=== PATIENT | female | born 1990 | race Caucasian/White ===

== ENCOUNTER → 2017-11-29 | Day surgery (SDC) | payer BC ==
--- NOTE | 2017-11-28 13:34 | PCM.PREANE ---
<Ann Funes - Last Filed: 11/28/17 13:26> Preanesthetic Assessment - Anesthesia/Transfusion/Family Hx Family History of Anesthesia Reaction: No Transfusion History: No Prior Transfusion(s) Intubation History: Unknown - Review of Systems Pulmonary: No Symptoms (Exercise induced asthma/current day smoker: 1/4 pack per day times less than 5 years) Gastrointestinal: Constipation Other: Reports: Thyroid Problems (hypothyroid), Anxiety - Physical Assessment NPO Status Date: 11/28/17 Height: 5 ft 4 in Mental Status: Alert & Oriented x3 - Lab Values: All lab values reviewed and noted and within acceptable ranges to proceed with scheduled procedure. - Allergies Allergies/Adverse Reactions: Allergies Allergy/AdvReac Type Severity Reaction Status Date / Time No Known Allergies Allergy Verified 11/28/17 15:09 - Anesthesia Plan Pre-Op Medication Ordered: None - Acknowledgements Anesthesia Type Planned: General Anesthesia Pt an Appropriate Candidate for the Planned Anesthesia: Yes Alternatives and Risks of Anesthesia Discussed w Pt/Guardian: Yes Pt/Guardian Understands and Agrees with Anesthesia Plan: Yes PreAnesthesia Questionnaire Respiratory History: Reports: Asthma Genitourinary History: Reports: Other (See Below) Other Genitourinary History: kidney infection [employer]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 (See Below) Other OB/BYN History: Ovarian cyst in childhood - Past Surgical History HEENT Surgical History: Reports: Tonsillectomy - SUBSTANCE USE Smoking Status *Q: Current Every Day Smoker Recreational Drug Use History: No - HOME MEDS Home Medications: Home Meds Ibuprofen 600 mg PO QID PRN #60 tablet 08/23/16 [Rx] Ethinyl Estradiol/Drospirenone [Yady 3 mg-0.02 mg Tablet] 1 tab PO DAILY [History] Levothyroxine 25 mcg PO DAILY 11/28/17 [History] - CURRENT (IN HOUSE) MEDS Current Meds: Current Medications Lactated Ringer's (Ringers, Lactated) 1,000 mls @ 125 mls/hr IV ASDIRECTED JOESPH Lidocaine/Sodium Bicarbonate (Buffered Lidocaine 1% In Ns 8.4%) 0.25 ml IDERM ONETIME PRN PRN Reason: Prior to IV Start Sodium Chloride (Saline Flush) 10 ml FLUSH ASDIRECTED PRN PRN Reason: Keep Vein Open Discontinued Medications Dexamethasone (Dexamethasone) Confirm Administered Dose 20 mg .ROUTE .STK-MED ONE Stop: 11/29/17 08:44 Fentanyl (Sublimaze) Confirm Administered Dose 250 mcg .ROUTE .STK-MED ONE Stop: 11/29/17 08:45 Lidocaine HCl (Xylocaine-Mpf 1%) Confirm Administered Dose 4 mls @ as directed .ROUTE .STK-MED ONE Stop: 11/29/17 08:44 Lactated Ringer's (Ringers, Lactated) Confirm Administered Dose 1,000 mls @ as directed .ROUTE .STK-MED ONE Stop: 11/29/17 08:44 Ketorolac Tromethamine (Toradol) Confirm Administered Dose 30 mg .ROUTE .STK- MED ONE Stop: 11/29/17 08:44 Midazolam HCl (Versed 1 Mg/Ml) Confirm Administered Dose 2 mg .ROUTE .STK-MED ONE Stop: 11/29/17 08:44 Ondansetron HCl (Zofran) Confirm Administered Dose 4 mg .ROUTE .STK-MED ONE Stop: 11/29/17 08:44 Propofol (Diprivan 20 Ml) Confirm Administered Dose 200 mg .ROUTE .STK-MED ONE Stop: 11/29/17 08:44 Rocuronium [place] (Zemuron) Confirm Administered Dose 50 mg .ROUTE .STK-MED ONE Stop: 11/29/17 08:44 <Jos Mayfield M - Last Filed: 11/29/17 09:28> Preanesthetic Assessment - Procedure Proposed Procedure: diag laparoscopy - Anesthesia/Transfusion/Family Hx Anesthesia History: Prior Anesthesia Without Reaction Family History of Anesthesia Reaction: No Transfusion History: No Prior Transfusion(s) Intubation History: Unknown - Review of Systems General: No Symptoms Pulmonary: No Symptoms Cardiovascular: No Symptoms Gastrointestinal: Abdominal Pain (from constipation), Constipation, Vomiting ( from constipation) Neurological: No Symptoms Other: Reports: Thyroid Problems, Anxiety (in highs school- not on meds) - Physical Assessment NPO Status Time: 22:30 (sip with thyroid med this am) Pulse: 74 O2 Sat by Pulse Oximetry: 98 Respiratory Rate: 16 Blood Pressure: 100/67 Temperature: 97.8 F Weight: 64.3 kg ASA Class: 2 Mental Status: Alert & Oriented x3 Airway Class: Mallampati = 1 Dentition: Reports: Normal Dentition Thyro-Mental Finger Breadths: 3 Mouth Opening Finger Breadths: 3 ROM/Head Extension: Full Lungs: Clear to Auscultation, Normal Respiratory Effort Cardiovascular: Regular Rate, Regular Rhythm - Blood Blood Available: No - Anesthesia Plan Pre-Op Medication Ordered: None - Acknowledgements Anesthesia Type Planned: General Anesthesia Pt an Appropriate Candidate for the Planned Anesthesia: Yes Alternatives and Risks of Anesthesia Discussed w Pt/Guardian: Yes Pt/Guardian Understands and Agrees with Anesthesia Plan: Yes PreAnesthesia Questionnaire Cardiovascular History: Reports: None Respiratory History: Reports: Asthma (exercised induced asthma- inhaler a year ago) Gastrointestinal History: Reports: Chronic Constipation [employer]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 (See Below) Other OB/BYN History: cyst now also Musculoskeletal History: Reports: None Psychiatric History: Reports: Anxiety (in high school) Oncologic (Cancer) History: Reports: None - Past Surgical History HEENT Surgical History: Reports: Tonsillectomy - History Comment History Comment: refused preg test- has period and using control - SUBSTANCE USE Smoking Status *Q: Current Every Day Smoker (couple cigs a day for 5 years) Tobacco Use Within Last Twelve Months: Cigarettes Second Hand Smoke Exposure: Yes Days Per Week of Alcohol Use: 1 (or less) Number of Drinks Per Day: 1 Total Drinks Per Week: 1 Recreational Drug Use History: No
[~2017-11-29] MED LIST: Albuterol 0.083% 2.5 MG/3 ML Neb Soln NEB PRN; Bupivacaine 0.5% 30 ML SDV ONE; Dexamethasone 4 MG/ML 5 ML MDV ONE; Glycopyrrolate 0.2 MG/ML SDV ONE; HYDROmorphone 0.5 MG/0.5 ML Syringe IVPUSH PRN; Ketorolac 30 MG/ML SDV ONE; Lactated Ringers 1,000 ML IV SCH; Lactated Ringers 1,000 ML ONE; Lidocaine 1% 4 ML ONE; Lidocaine 1%/Sod Bicarbonate in NS 8.4% 1 ML Syringe IDERM PRN; Meperidine PF 50 MG/ML Syringe IVPUSH PRN; Midazolam 1 MG/ML 2 ML SDV ONE; Neostigmine Methylsulfate 10 MG/10 ML MDV ONE; Ondansetron 4 MG/2 ML SDV IVPUSH PRN; Ondansetron 4 MG/2 ML SDV ONE; Phenylephrine 1 MG in Sodium Chloride 0.9% 10 ML IV SCH; Phenylephrine 1% 10 MG/ML SDV ONE; Propofol 200 MG/20 ML SDV ONE; Rocuronium 50 MG/5 ML Vial ONE; Sodium Chloride 0.9% 10 ML Syringe FLUSH PRN; diphenhydrAMINE 50 MG/ML SDV IVPUSH PRN; ePHEDrine 50 MG/ML SDV IVPUSH PRN; ePHEDrine 50 MG/ML SDV ONE; fentaNYL 100 MCG/2 ML SDV IVPUSH PRN; fentaNYL 250 MCG/5 ML SDV ONE
--- NOTE | 2017-11-29 11:18 | PCM.OPNOTE ---
- General Post-Op/Procedure Note Date of Surgery/Procedure: 11/29/17 Operative Procedure(s): Diagnostic laparoscopy with peritoneal biopsies and takedown of adhesions Findings: Overall normal-appearing uterus, bilateral tubes and bilateral ovaries, normal- appearing appendix, normal-appearing liver and gallbladder portions that were visible, normal-appearing intestines, posterior cul-de-sac peritoneum with several areas of possible cystic changes that were biopsied Pre Op Diagnosis: Female pelvic pain, irregular menses and chronic constipation Post-Op Diagnosis: Same Anesthesia Technique: General ET Tube Primary Surgeon: Neal Duarte Anesthesia Provider: Ann Funes Pathology: Left posterior cul-de-sac peritoneal biopsy, right posterior cul-de-sac peritoneal biopsy Fluid Replacement, Intraop: 1,100 Output, Urine Amount: 25 EBL in mLs: 5 Complications: None Condition: Good Free Text/Narrative:: Operating time: 30 minutes The patient was seen in the preoperative holding area and risks, benefits, indications, and alternatives of the procedure were reviewed with the patient and she desired to proceed with a diagnostic laparoscopy, biopsies as indicated , possible lysis of adhesions and possible fulguration of lesions. Consents were reviewed. The patient was taken back to the OR and given general anesthesia with an endotracheal tube which was placed without difficulty. She was placed in dorsal lithotomy position using Yellofin stirrups. She was prepped and draped in normal sterile fashion. A Cruz catheter was placed without difficulty. Attention was then turned to her umbilicus, which was injected with 0.5% Marcaine infraumbilically. A 5 mm incision was made with the scalpel. A Veress needle was then inserted through the incision and gas was turned on, with an opening pressure of 6 mmHg. Pneumoperitoneum was continued until 15 mmHg pressure. A 5 mm trocar was then inserted under direct visualization with a laparoscope. Attention was then turned to the suprapubic area and the skin was injected with local anesthetic. A skin incision was made using a scalpel. A 5 mm trocar was then inserted under direct visualization with laparoscope. Attention was then turned to the pelvis and visual inspection was performed and noted to have a normal-appearing uterus, normal bilateral fallopian tubes, and normal bilateral ovaries. The anterior cul-de-sac was normal in appearance. Attention was turned to the remainder of the abdomen and the appendix was identified and appeared normal. The remainder of the intestines appeared normal. On further inspection of the posterior cul-de-sac there was noted to be several small cystic areas on the bilateral sides of the peritoneal surface. Biopsies were taken on the right and left side of the posterior cul-de-sac peritoneum. These were sent for pathology. The biopsy sites were hemostatic. On inspection of the descending colon there was noted to be some adhesions to the left lateral sidewall and these were taken down using blunt traction with atraumatic graspers. The upper abdomen was inspected and she was noted have some adhesions of the omentum to the abdominal wall. These were not taken down. The visualized portions of the liver and gallbladder appeared normal. The case was completed at this time. The gas was then evacuated from the peritoneum and trocars removed. These were closed using 4-0 Monocryl suture and Dermabond. The Cruz catheter was discontinued at this time. The patient was awoken from general anesthesia and taken to the PACU for recovery in stable condition. She will be discharged to home once she is able to meet all postoperative milestones including tolerating small amount of food and liquids, ambulate without difficulty, have her pain controlled with oral medications and able to void without difficulty. She will follow-up in the clinic in 2-3 weeks or earlier as needed. Sponge, lap, needle, and instrument counts were correct x 2. Review of images IMG 001: Normal-appearing uterus, right fallopian tube and right ovary IMG 002: Normal-appearing appendix IMG 003: Normal-appearing left fallopian tube and small portion of ovary that was normal in appearance IMG 004: Normal-appearing liver edge and gallbladder
--- NOTE | 2017-11-29 11:21 | PCM.POSTAN ---
POST ANESTHESIA ASSESSMENT - MENTAL STATUS Mental Status: Alert - VITAL SIGNS Pulse Rate: 112 SaO2: 100 (2 LPM nasal cannula) Resp Rate: 11 Blood Pressure: 121/85 Temperature: 37.2 C - RESPIRATORY Respiratory Status: Respiratory Rate WNL, Airway Patent, O2 Saturation Stable - CARDIOVASCULAR CV Status: Pulse Rate WNL, Blood Pressure Stable - GASTROINTESTINAL GI Status: No Symptoms - POST OP HYDRATION Hydration Status: Adequate & Stable
--- NOTE | 2017-11-29 12:53 | PCM48HPAN ---
Post Anesthesia Note - EVALUATION WITHIN 48HRS OF ANESTHETIC Vital Signs in Normal Range: Yes Patient Participated in Evaluation: Yes Respiratory Function Stable: Yes Airway Patent: Yes Cardiovascular Function Stable: Yes Hydration Status Stable: Yes Pain Control Satisfactory: Yes Nausea and Vomiting Control Satisfactory: Yes Mental Status Recovered: Yes
[2017-11-29 13:08] VITALS: BP 101/67
== END | disposition home or self-care (01) ==
LOC: JD.SDS 08:55
PROVIDERS: ATTEND Obstetrics & Gynecology
DX: R10.2 Pelvic and perineal pain (principal); N92.6 Irregular menstruation, unspecified; K59.09 Other constipation; F41.9 Anxiety disorder, unspecified; J45.909 Unspecified asthma, uncomplicated; E03.9 Hypothyroidism, unspecified; F17.210 Nicotine dependence, cigarettes, uncomplicated
CPT/HCPCS: 49321; J1100; J1885; J2250; J2370; J2405; J2710; J3010; J3490; J7120; J2704

== ENCOUNTER 2020-02-05 06:22 | Emergency (ER) | payer BC ==
[2020-02-05] MEDS ORDERED: Ondansetron 4 MG/2 ML SDV IVPUSH ONE (06:56)
[2020-02-05] MEDS ORDERED: Sodium Chloride 0.9% 1,000 ML IV STA (06:56)
[2020-02-05] MEDS ORDERED: Sodium Chloride 0.9% 10 ML Syringe FLUSH PRN (06:56)
[2020-02-05] MEDS ORDERED: HYDROmorphone 1 MG/ML Syringe IVPUSH ONE ×2 (06:57→09:20)
[2020-02-05] MEDS ORDERED: Diatrizoate Meglumine/Diatrizoate Sodium 37% 120 ML Bottle PO ONE (07:04)
[2020-02-05] MEDS ORDERED: Iopamidol 612 MG/ML 100 ML Bottle IVPUSH ONE (07:04)
--- NOTE | 2020-02-05 08:51 | CT ---
CT abdomen and pelvis Technique: Multiple axial sections were obtained from above the dome of the diaphragm inferiorly through the pubic symphysis. Intravenous and oral contrast was utilized. Comparison: Prior abdominal x-ray of 02/20/19, no prior CT abdominal or pelvic exam is available. Findings: Appendix is seen and is normal in size. Slightly prominent lymph nodes are noted within the right lower abdomen. Visualized lung bases show nothing acute. Liver contains no focal abnormality. Spleen appears within normal limits. Adrenal glands show no nodule. Pancreas is within normal limits. Kidneys show symmetric contrast enhancement without hydronephrosis or mass. Aorta shows no aneurysm. Gallbladder contains no calcified gallstones. No retroperitoneal adenopathy is seen. No mesenteric inflammatory change is seen. No pelvic mass or adenopathy is seen. Mild increased stool is seen throughout colon. Bone window settings were reviewed. No acute osseous finding is seen. Impression: 1. Normal-appearing appendix is seen. 2. Slightly prominent lymph nodes within the right lower abdomen and difficult to exclude so-called mesenteric adenitis. 3. Mild increased stool is noted within the colon. Diagnostic code #3 This report was dictated in MDT
--- NOTE | 2020-02-05 09:05 | EDM.PDOC ---
ED HPI GENERAL MEDICAL PROBLEM - General Chief Complaint: Abdominal Pain Stated Complaint: RIGHT ABDOMINAL PAIN Time Seen by Provider: 02/05/20 06:50 Source of Information: Reports: Patient History Limitations: Reports: No Limitations - History of Present Illness INITIAL COMMENTS - FREE TEXT/NARRATIVE: The patient presents with RLQ abdominal pain and nausea. This started yeste rday. She says the pain is worse since yesterday. She has nausea but no vomiting. She does have a history of IBS, PCOS and endometriosis. She says this feels different then all of them. She has no vomiting. She has no fever or chills. She does have some dysuria but no hematuria. She has no fever but she does have chills. She has no cough, congestion or runny nose. She has no chest pain or shortness of breath. She still has her appendix and gallbladder. Her last normal menstrual period was 2 weeks ago. Onset: Gradual Duration: Day(s): Location: Reports: Abdomen Quality: Reports: Sharp Severity: Moderate Improves with: Reports: Immobilization Worsens with: Reports: Movement Context: Denies: Trauma Associated Symptoms: Reports: No Other Symptoms Right Lower Abdominal Pain Score (Numeric/FACES): 10 - Related Data Allergies Allergy/AdvReac Type Severity Reaction Status Date / Time CHG Wipes Allergy "Burning Uncoded 02/05/20 06:36 Sensation", Redness, Rash Home Meds: Home Meds Ethinyl Estradiol/Drospirenone [Yady 3 mg-0.02 mg Tablet] 1 tab PO DAILY 11/28/17 [History] Levothyroxine 25 mcg PO DAILY 11/28/17 [History] Sertraline [Zoloft] 25 mg PO DAILY 06/26/18 [History] Omeprazole Magnesium [Prilosec Otc] 20 mg PO DAILY #10 tablet. 02/21/19 [Rx] Hydrocodone/Acetaminophen [Hydrocodone-Acetamin 5-325 mg] 1 - 2 each PO Q6HR PRN #20 tablet 02/05/20 [Rx] Ondansetron [Zofran ODT] 4 mg PO Q6H PRN #20 tab.dis 02/05/20 [Rx] Past Medical History HEENT History: Reports: Other (See Below) Other HEENT History: Deviated septum Cardiovascular History: Reports: None Respiratory History: Reports: Asthma Gastrointestinal History: Reports: Chronic Constipation Genitourinary History: Reports: UTI, Recurrent, Other (See Below) Other Genitourinary History: kidney infection, pylenonephritis CRIMINAL INVESTIGATIVE AGENT History: Reports: Endometriosis, Polycystic Ovaries, Other (See Below) Other CRIMINAL INVESTIGATIVE AGENT History: cyst now also Musculoskeletal History: Reports: Fracture, Fibromyalgia Other Musculoskeletal History: Nasal fracture Neurological History: Reports: None Psychiatric History: Reports: Anxiety Endocrine/Metabolic History: Reports: Hypothyroidism Hematologic History: Reports: Anemia Immunologic History: Reports: None Oncologic (Cancer) History: Reports: None Dermatologic History: Reports: None - Infectious Disease History Infectious Disease History: Reports: Chicken Pox, Shingles - Past Surgical History Head Surgeries/Procedures: Reports: None HEENT Surgical History: Reports: Tonsillectomy GI Surgical History: Reports: Other (See Below) Other GI Surgeries/Procedures: Exploratory laproscopy Female Surgical History: Reports: None Endocrine Surgical History: Reports: None Neurological Surgical History: Reports: None Dermatological Surgical History: Reports: None - History Comment History Comment: refused preg test- has period and using control Social & Family History - Family History Family Medical History: Noncontributory Cardiac: Reports: [place] - Tobacco Use Smoking Status *Q: Former Smoker Used Tobacco, but Quit: Yes Month/Year Tobacco Last Used: August 2019 - Caffeine Use Caffeine Use: Reports: Coffee, Soda - Recreational Drug Use Drug Use in Last 12 Months: No ED ROS GENERAL - Review of Systems Review Of Systems: See Below Constitutional: Reports: Chills. Denies: Fever HEENT: Reports: No Symptoms Respiratory: Reports: No Symptoms Cardiovascular: Reports: No Symptoms Endocrine: Reports: No Symptoms GI/Abdominal: Reports: Abdominal Pain, Nausea. Denies: Diarrhea, Vomiting : Reports: Dysuria Musculoskeletal: Reports: No Symptoms ED EXAM, GI/ABD - Physical Exam Exam: See Below Exam Limited By: No Limitations General Appearance: Alert, No Apparent Distress Ears: Normal External Exam Nose: Normal Inspection Head: Atraumatic, Normocephalic Neck: Normal Inspection Respiratory/Chest: No Respiratory Distress, Lungs Clear, Normal Breath Sounds Cardiovascular: Regular Rate, Rhythm, No Edema, No Murmur GI/Abdominal Exam: Soft, No Organomegaly, No Mass, Tender (Moderate tenderness to the RLQ) Back Exam: Normal Inspection Extremities: Normal Inspection Course - Vital Signs Last Recorded V/S: Last Vital Signs Temp 97.8 F 02/05/20 06:33 Pulse 105 H 02/05/20 06:33 Resp 16 02/05/20 06:33 BP 129/79 02/05/20 06:33 Pulse Ox 98 02/05/20 06:33 - Orders/Labs/Meds Orders: Active Orders 24 hr Category Date Time Status Peripheral IV Care [RC] . DIRECTED Care 02/05/20 06:56 Active HYDROmorphone [Dilaudid] Med 02/05/20 09:20 Once 1 mg IVPUSH ONETIME ONE Sodium Chloride 0.9% [Saline Flush] Med 02/05/20 06:56 Active 10 ml FLUSH ASDIRECTED PRN ED Antiemetic Medication Reflex [OM.PC] Stat Oth 02/05/20 06:56 Ordered Peripheral IV Insertion Adult [OM.PC] Stat Ot 02/05/20 06:56 Ordered Medication Orders Sodium Chloride (Saline Flush) 10 ml FLUSH ASDIRECTED PRN PRN Reason: Keep Vein Open Last Admin: 02/05/20 08:37 Dose: 10 ml Documented by: AGATHA Labs: Laboratory Tests 02/05/20 02/05/20 02/05/20 Range/Units 06:30 06:30 06:30 WBC 12.80 H (3.98-10.04) K/mm3 RBC 5.11 (3.98-5.22) M/mm3 Hgb 14.6 D (11.2-15.7) gm/dl Hct 43.8 (34.1-44.9) % MCV 85.7 (79.4-94.8) fl MCH 28.6 (25.6-32.2) pg MCHC 33.3 (32.2-35.5) g/dl RDW Std Deviation 39.4 (36.4-46.3) fL Plt Count 225 (182-369) K/mm3 MPV 10.9 (9.4-12.3) fl Neut % (Auto) 66.9 (34.0-71.1) % Lymph % (Auto) 23.0 (19.3-51.7) % [place] % (Auto) 7.7 (4.7-12.5) % Eos % (Auto) 2.0 (0.7-5.8) Baso % (Auto) 0.2 (0.1-1.2) % Neut # (Auto) 8.55 H (1.56-6.13) K/mm3 Lymph # (Auto) 2.95 (1.18-3.74) K/mm3 [place] # (Auto) 0.99 H (0.24-0.36) K/mm3 Eos # (Auto) 0.26 (0.04-0.36) K/mm3 Baso # (Auto) 0.03 (0.01-0.08) K/mm3 Manual Slide Review Abnormal smear Sodium 138 (136-145) mEq/L Potassium 3.3 L (3.5-5.1) mEq/L Chloride 102 (98-107) mEq/L Carbon Dioxide 24 (21-32) mEq/L Anion Gap 15.3 H (5-15) BUN 7 (7-18) mg/dL Creatinine 0.9 (0.55-1.02) mg/dL Est Cr Clr Drug Dosing 83.74 mL/min Estimated GFR (MDRD) > 60 (>60) mL/min BUN/Creatinine Ratio 7.8 L (14-18) Glucose 96 (74-106) mg/dL Calcium 8.9 (8.5-10.1) mg/dL Total Bilirubin 0.6 (0.2-1.0) mg/dL AST 14 L (15-37) U/L ALT 23 (14-59) U/L Alkaline Phosphatase 77 (46-116) U/L Total Protein 7.4 (6.4-8.2) g/dl Albumin 3.9 (3.4-5.0) g/dl Globulin 3.5 gm/dL Albumin/Globulin Ratio 1.1 (1-2) Lipase (73-393) U/L HCG, Qual Negative (NEGATIVE) Urine Color (Yellow) Urine Appearance (Clear) Urine pH (5.0-8.0) Ur Specific [place] (1.005-1.030) Urine Protein (Negative) Urine Glucose (UA) (Negative) Urine Ketones (Negative) Urine Occult Blood (Negative) Urine Nitrite (Negative) Urine Bilirubin (Negative) Urine Urobilinogen (0.2-1.0) Ur Leukocyte Esterase (Negative) Urine RBC (0-5) /hpf Urine WBC (0-5) /hpf Ur Squamous Epith Cells (0-5) /hpf Urine Bacteria (FEW) /hpf Urine Mucus (FEW) /hpf 02/05/20 02/05/20 Range/Units 06:30 07:10 WBC (3.98-10.04) K/mm3 RBC (3.98-5.22) M/mm3 Hgb (11.2-15.7) gm/dl Hct (34.1-44.9) % MCV (79.4-94.8) fl MCH (25.6-32.2) pg MCHC (32.2-35.5) g/dl RDW Std Deviation (36.4-46.3) fL Plt Count (182-369) K/mm3 MPV (9.4-12.3) fl Neut % (Auto) (34.0-71.1) % Lymph % (Auto) (19.3-51.7) % [place] % (Auto) (4.7-12.5) % Eos % (Auto) (0.7-5.8) Baso % (Auto) (0.1-1.2) % Neut # (Auto) (1.56-6.13) K/mm3 Lymph # (Auto) (1.18-3.74) K/mm3 [place] # (Auto) (0.24-0.36) K/mm3 Eos # (Auto) (0.04-0.36) K/mm3 Baso # (Auto) (0.01-0.08) K/mm3 Manual Slide Review Sodium (136-145) mEq/L Potassium (3.5-5.1) mEq/L Chloride (98-107) mEq/L Carbon Dioxide (21-32) mEq/L Anion Gap (5-15) BUN (7-18) mg/dL Creatinine (0.55-1.02) mg/dL Est Cr Clr Drug Dosing mL/min Estimated GFR (MDRD) (>60) mL/min BUN/Creatinine Ratio (14-18) Glucose (74-106) mg/dL Calcium (8.5-10.1) mg/dL Total Bilirubin (0.2-1.0) mg/dL AST (15-37) U/L ALT (14-59) U/L Alkaline Phosphatase (46-116) U/L Total Protein (6.4-8.2) g/dl Albumin (3.4-5.0) g/dl Globulin gm/dL Albumin/Globulin Ratio (1-2) Lipase 61 L (73-393) U/L HCG, Qual (NEGATIVE) Urine Color Yellow (Yellow) Urine Appearance Clear (Clear) Urine pH 6.0 (5.0-8.0) Ur Specific [place] 1.020 (1.005-1.030) Urine Protein Negative (Negative) Urine Glucose (UA) Negative (Negative) Urine Ketones 2+ H (Negative) Urine Occult Blood Negative (Negative) Urine Nitrite Negative (Negative) Urine Bilirubin Negative (Negative) Urine Urobilinogen 0.2 (0.2-1.0) Ur Leukocyte Esterase Negative (Negative) Urine RBC 0-5 (0-5) /hpf Urine WBC 0-5 (0-5) /hpf Ur Squamous Epith Cells 0-5 (0-5) /hpf Urine Bacteria Rare (FEW) /hpf Urine Mucus Few (FEW) /hpf Meds: Medications Generic Name Dose Route Start Last Admin Trade Name Mary PRN Reason Stop Dose Admin Sodium Chloride 10 ml 02/05/20 06:56 02/05/20 08:37 Saline Flush FLUSH 10 ml ASDIRECTED PRN Administration Keep Vein Open Discontinued Medications Generic Name Dose Route Start Last Admin Trade Name Mary PRN Reason Stop Dose Admin Diatrizoate Meglum/Diatrizoate Sod 90 ml 02/05/20 07:04 02/05/20 08:37 Gastrografin 37% PO 02/05/20 07:05 90 ml ONETIME ONE Administration Hydromorphone HCl 1 mg 02/05/20 06:57 02/05/20 07:17 Dilaudid IVPUSH 02/05/20 06:58 1 mg ONETIME ONE Administration Sodium Chloride 1,000 mls @ 1,000 mls/hr 02/05/20 06:56 02/05/20 07:19 Normal Saline IV 02/05/20 07:55 1,000 mls/hr .BOLUS STA Administration Iopamidol 100 ml 02/05/20 07:04 02/05/20 08:37 Isovue-300 (61%) IVPUSH 02/05/20 07:05 100 ml ONETIME ONE Administration Ondansetron HCl 4 mg 02/05/20 06:56 06/23/20 07:15 Zofran IVPUSH 02/05/20 06:57 4 mg ONETIME ONE Administration - Re-Assessments/Exams Free Text/Narrative Re-Assessment/Exam: 02/05/20 09:03 I ordered an IV NS 1L bolus, zofran 4mg IV, dilaudid 1mg IV, labs, UA and a CT of her abdomen and pelvis with IV and oral contrast. Her WBC was elevated at 12.8. Her K was a little low at 3.3. Her anion gap was slightly elevated at 15.3. Her lipase was low at 61. Her HCG is negative. Her UA shows no UTI. Her CT shows normal appearing appendix is seen. Slightly prominent lymph nodes within the right lower abdomen and difficult to exclude so-called mesenteric adenitis. Mild increased stool is noted within the colon. 02/05/20 09:21 Her pain is coming back. I will give her another dose of dilaudid 1mg IV. I will discharge her home on something for pain and nausea and have her follow up with her doctor or return if she is worse. Departure - Departure Time of Disposition: 09:25 Disposition: Home, Self-Care 01 Condition: Good Clinical Impression: Mesenteric adenitis - Discharge Information *PRESCRIPTION DRUG MONITORING PROGRAM REVIEWED*: Not Applicable *COPY OF PRESCRIPTION DRUG MONITORING REPORT IN PATIENT EMERITA: Not Applicable Prescriptions: Hydrocodone/Acetaminophen [Hydrocodone-Acetamin 5-325 mg] 1 - 2 each PO Q6HR PRN #20 tablet PRN Reason: Pain Ondansetron [Zofran ODT] 4 mg PO Q6H PRN #20 tab.dis PRN Reason: Nausea\\vomiting Referrals: PCP,None [Primary Care Provider] - Aliya Mathew MD [Physician] - Ebonie Leblanc NP [Nurse Practitioner] - 3 Days Forms: ED Department Discharge Additional Instructions: Drink plenty of fluids. Take motrin or tylenol for pain. If that does not help, try the hydrocodone. Take the zofran every 6 hours as needed for nausea and vomiting. Please return if you are worse. Follow up with your provider in 3 days or with Ebonie Leblanc in our clinic. Sepsis Event Note (ED) - Evaluation Sepsis Screening Result: No Definite Risk - Focused Exam Vital Signs: Vital Signs Temp Pulse Resp BP Pulse Ox 02/05/20 06:33 97.8 F 105 H 16 129/79 98 - My Orders Last 24 Hours: My Active Orders 02/05/20 06:56 Peripheral IV Care [RC] . DIRECTED Sodium Chloride 0.9% [Saline Flush] 10 ml FLUSH ASDIRECTED PRN ED Antiemetic Medication Reflex [OM.PC] Stat Peripheral IV Insertion Adult [OM.PC] Stat 02/05/20 09:20 HYDROmorphone [Dilaudid] 1 mg IVPUSH ONETIME ONE - Assessment/Plan Last 24 Hours: My Active Orders 02/05/20 06:56 Peripheral IV Care [RC] . DIRECTED Sodium Chloride 0.9% [Saline Flush] 10 ml FLUSH ASDIRECTED PRN ED Antiemetic Medication Reflex [OM.PC] Stat Peripheral IV Insertion Adult [OM.PC] Stat 02/05/20 09:20 HYDROmorphone [Dilaudid] 1 mg IVPUSH ONETIME ONE
[2020-02-05 09:53] VITALS: BP 97/72; PULSE 79
== END 2020-02-05 10:00 | disposition home or self-care (01) ==
LOC: JD.ED 06:22
DX: I88.0 Nonspecific mesenteric lymphadenitis (principal); J45.909 Unspecified asthma, uncomplicated; E03.9 Hypothyroidism, unspecified; F41.9 Anxiety disorder, unspecified; Z87.891 Personal history of nicotine dependence; Z91.048 Other nonmedicinal substance allergy status; Z79.899 Other long term (current) drug therapy
CPT/HCPCS: 36415; 74177; 80053; 81001; 83690; 84703; 85025; 96374; 96375; 96376; 99284; J1170; J2405; J7030; Q9963; Q9967

== ENCOUNTER 2020-03-02 10:12 | Emergency (ER) | payer BC ==
[2020-03-02 10:27] VITALS: BP 122/84; PULSE 89
--- NOTE | 2020-03-02 10:34 | EDM.PDOC ---
ED HPI GENERAL MEDICAL PROBLEM - General Chief Complaint: Chest Pain Stated Complaint: CHEST PAIN Time Seen by Provider: 03/02/20 10:30 Source of Information: Reports: Patient History Limitations: Reports: No Limitations - History of Present Illness INITIAL COMMENTS - FREE TEXT/NARRATIVE: 29-year-old female presents to the ED complaining of central retrosternal chest pressure discomfort not radiating through to her back. She reports that this awoke her from sleep about 0900 hrs. this morning. She really has not tried to burp or belch to relieve the discomfort. She indicates that the pain is coming and going in a spastic or colic-like fashion. It is better now than it was when she left home. There is been no nausea or vomiting. She states her last meal was about 3 hours before going to bed last night. She denies any recent alcohol use. She used to take Prilosec for her stomach because she has IBS and primarily a constipation component. Has not been using it as of late. She rarely gets heartburn or at least not aware of this. Force has no underlying heart condition. She questions whether the pain is better with lying down versus sitting up. She thought perhaps it was more spastic when she was up and walking and standing. Feeling much better now as compared to when she elected to come to the hospital. No previous similar complaints. Denies any po ssibility of . She has been on oral contraceptive pill for greater than 6 months. Onset: Today, Sudden Onset Date: 03/02/20 Onset Time: 09:00 Duration: Minutes: Location: Reports: Chest (Chest pressure discomfort.) Quality: Reports: Ache, Pressure, Sharp, Stabbing (Intermittent colicky type pain as well.), Other Severity: Moderate Improves with: Reports: None Worsens with: Reports: None (Took some Tums with no relief.) Context: Denies: Activity, Exercise, Lifting, Sick Contact, Trauma, Other Associated Symptoms: Reports: No Other Symptoms, Loss of Appetite. Denies: Confusion, Chest Pain, Cough, cough w sputum, Diaphoresis, Fever/Chills, Headaches, Malaise, Nausea/Vomiting, Rash, Seizure, Shortness of Breath, Syncope, Weakness Treatments PIZZA HUT ASSISTANT: Reports: Other (see below) (Tums with no relief) - Related Data Allergies Allergy/AdvReac Type Severity Reaction Status Date / Time CHG Wipes Allergy "Burning Uncoded 03/02/20 10:27 Sensation", Redness, Rash Home Meds: Home Meds Ethinyl Estradiol/Drospirenone [Yady 3 mg-0.02 mg Tablet] 1 tab PO DAILY 11/28/17 [History] Dicyclomine [Bentyl] 20 mg PO Q6H PRN #8 tablet 03/02/20 [Rx] Past Medical History HEENT History: Reports: Other (See Below) Other HEENT History: Deviated septum Cardiovascular History: Reports: None Respiratory History: Reports: Asthma Gastrointestinal History: Reports: Chronic Constipation Genitourinary History: Reports: UTI, Recurrent, Other (See Below) Other Genitourinary History: kidney infection, pylenonephritis GRAPHIC ENGINEER History: Reports: Endometriosis, Polycystic Ovaries, Other (See Below) Other GRAPHIC ENGINEER History: cyst now also Musculoskeletal History: Reports: Fracture, Fibromyalgia Other Musculoskeletal History: Nasal fracture Neurological History: Reports: None Psychiatric History: Reports: Anxiety Endocrine/Metabolic History: Reports: Hypothyroidism Hematologic History: Reports: Anemia Immunologic History: Reports: None Oncologic (Cancer) History: Reports: None Dermatologic History: Reports: None - Infectious Disease History Infectious Disease History: Reports: Chicken Pox, Shingles - Past Surgical History Head Surgeries/Procedures: Reports: None HEENT Surgical History: Reports: Tonsillectomy GI Surgical History: Reports: Other (See Below) Other GI Surgeries/Procedures: Exploratory laproscopy Female Surgical History: Reports: None Endocrine Surgical History: Reports: None Neurological Surgical History: Reports: None Dermatological Surgical History: Reports: None - History Comment History Comment: refused preg test- has period and using control Social & Family History - Family History Family Medical History: Noncontributory Cardiac: Reports: [place] - Tobacco Use Smoking Status *Q: Never Smoker - Caffeine Use Caffeine Use: Reports: Coffee, Soda - Recreational Drug Use Recreational Drug Use: No - Living Situation & Occupation Living situation: Reports: Single Occupation: Employed ED ROS GENERAL - Review of Systems Review Of Systems: See Below Constitutional: Denies: Fever, Chills, Malaise, Weakness, Fatigue, Decreased Appetite, Weight Loss HEENT: Reports: No Symptoms Respiratory: Reports: No Symptoms. Denies: Shortness of Breath, Wheezing, Pleuritic Chest Pain Cardiovascular: Reports: Chest Pain. Denies: Blood Pressure Problem, Claudication, Dyspnea on Exertion, Edema, Lightheadedness, Orthopnea Endocrine: Reports: No Symptoms GI/Abdominal: Reports: Abdominal Pain, Constipation (Has IBS with primary constipation.). Denies: Nausea, Vomiting : Reports: No Symptoms Musculoskeletal: Reports: No Symptoms Skin: Reports: No Symptoms Neurological: Reports: No Symptoms Psychiatric: Reports: No Symptoms Hematologic/Lymphatic: Reports: No Symptoms Immunologic: Reports: No Symptoms ED EXAM, GENERAL - Physical Exam Exam: See Below Exam Limited By: No Limitations General Appearance: Alert, WD/WN, No Apparent Distress, Other (Temperature is 36.6 with a heart rate of 89 and sinus. Respiratory to 16 BP 122/84 O2 sats 98% on room air.) Eye Exam: Bilateral Eye: Normal Inspection, PERRL Neck: Normal Inspection, Supple, Non-Tender, Full Range of Motion. No: Carotid Bruit, Lymphadenopathy (L), Lymphadenopathy (R) Respiratory/Chest: No Respiratory Distress, Lungs Clear, Normal Breath Sounds, No Accessory Muscle Use, Chest Non-Tender Cardiovascular: Normal Peripheral Pulses, Regular Rate, Rhythm, No Edema, No Gallop, No Murmur, No Rub Peripheral Pulses: 3+: Carotid (L), Carotid (R), Posterior Tibial (L), Posterior Tibial (R), Dorsalis Pedis (L), Dorsalis Pedis (R) GI/Abdominal: Normal Bowel Sounds, Soft, No Organomegaly, No Abnormal Bruit, No Mass, Pelvis Stable, Tender (Some tenderness on deep palpation in the in the epigastrium.). No: Guarding, Rigid, Rebound Back Exam: Normal Inspection, Full Range of Motion. No: CVA Tenderness (L), CVA Tenderness (R) Extremities: Normal Inspection, Normal Range of Motion, Non-Tender, No Pedal Edema Neurological: Alert, Oriented, CN II-XII Intact, Normal Cognition, Normal Gait Psychiatric: Normal Affect, Normal Mood Skin Exam: Warm, Dry, Intact, Normal Color, No Rash EKG INTERPRETATION EKG Date: 03/02/20 Time: 10:58 Rhythm: NSR Rate (Beats/Min): 77 [place]: RAD-Right [place] Deviation (33 degrees.) P-Wave: Present QRS: Normal ST-T: Other (Wave inversion V1 to V3 with flattening in aVL. Nonspecific findings.) QT: Normal EKG Interpretation Comments: Borderline ECG Course - Vital Signs Last Recorded V/S: Last Vital Signs Temp 36.6 C 03/02/20 10:25 Pulse 89 03/02/20 10:25 Resp 16 03/02/20 10:25 BP 122/84 03/02/20 10:25 Pulse Ox 98 03/02/20 10:25 - Orders/Labs/Meds Orders: Active Orders 24 hr Category Date Time Status EKG Documentation Completion [RC] STAT Care 03/02/20 10:50 Active Chest 1V Frontal [CR] Stat Exams 03/02/20 10:50 Taken Meds: Medications Discontinued Medications Generic Name Dose Route Start Last Admin Trade Name Mary PRN Reason Stop Dose Admin Al Hydroxide/Mg Hydroxide 30 0 ml 03/02/20 11:25 03/02/20 11:43 ml/ Lidocaine HCl 15 ml PO 03/02/20 11:26 45 ml ONETIME ONE Administration Dicyclomine HCl 20 mg 03/02/20 11:26 03/02/20 11:43 Bentyl PO 03/02/20 11:27 20 mg ONETIME ONE Administration Hyoscyamine 0.125 mg 03/02/20 10:50 03/02/20 10:54 Hyomax-Sl SL 03/02/20 10:51 0.125 mg ONETIME ONE Administration - Radiology Interpretation Free Text/Narrative:: 29-year-old female presents to the ED after awakening from sleep about 0900 hrs. this morning with central chest pressure discomfort. No relief with [place] by mouth. She does not report any significant burping or belching to relieve the discomfort. She did eat about 3 to 4 hours before going to bed last night. She has a history of mild heartburn and reflux but is been well controlled as of late. Pain does seem to radiate up and down the esophagus distribution and does have a colicky component to it. She reports it is much better now than it was when she left home this morning. Clinically she has no signs of cardiac disease. Ice is strongly suspected GI origin to her current chest complaints. Plan Levsin 0.125 mg sublingual. ECG and a one-view portable chest x-ray to be done. - Re-Assessments/Exams Free Text/Narrative Re-Assessment/Exam: 03/02/20 11:26 ECG and portable chest x-ray are within normal limits. Patient is still experiencing quite a bit of spastic central chest pain which I suspect is esophageal spasm. To help all that much. We will therefore give her a GI cocktail and Bentyl 20 mg p.o. Departure - Departure Time of Disposition: 12:04 Disposition: Home, Self-Care 01 Reason for Transfer *Q: Other Condition: Fair Clinical Impression: Non-cardiac chest pain, Esophageal spasm Prescriptions: Dicyclomine [Bentyl] 20 mg PO Q6H PRN #8 tablet PRN Reason: Abdominal cramps/diarrhea Instructions: Esophageal Spasm Referrals: PCP,None [Primary Care Provider] - Forms: ED Department Discharge Additional Instructions: Evaluation in the emergency room today in regards to central chest pressure discomfort with a colicky component i.e. sharp stabbing intermittent pain strongly suggestive of esophageal spasm. ECG and chest x-ray were within normal limits. You were treated with Levsin 0.125 mg under the tongue to relieve spasm as well as Bentyl 20 mg orally which will take 45 minutes or so to work. GI cocktail also helped a little bit relieve the discomfort in your chest. Strongly suggest avoiding acidic foods today such as mustard, ketchup, pickle juice etc. Cliff diet for the next day or so. No alcohol use. Just resuming Prilosec 20 mg twice daily for the next 4 days and then once daily at bedtime for another 10 days to allow the food pipe to heal. If symptoms persist then follow-up with primary care physician to see if upper GI endoscopy is required. I did write a prescription for Bentyl tablets to be taken 20 mg every 6 hours if needed for similar type pain. Sepsis Event Note (ED) - Evaluation Sepsis Screening Result: No Definite Risk - Focused Exam Vital Signs: Vital Signs Temp Pulse Resp BP Pulse Ox 03/02/20 10:25 36.6 C 89 16 122/84 98 - My Orders Last 24 Hours: My Active Orders 03/02/20 10:50 EKG Documentation Completion [RC] STAT Chest 1V Frontal [CR] Stat - Assessment/Plan Last 24 Hours: My Active Orders 03/02/20 10:50 EKG Documentation Completion [RC] STAT Chest 1V Frontal [CR] Stat
[2020-03-02] MEDS ORDERED: Hyoscyamine 0.125 MG Tab.SL SL ONE (10:50)
[2020-03-02] MEDS ORDERED: Alum Hydrox/Mag Hydrox/Simeth 30 ML, Lidocaine 2% 15 ML PO ONE ×2 (11:25)
[2020-03-02] MEDS ORDERED: Dicyclomine 10 MG Cap PO ONE (11:26)
--- NOTE | 2020-03-03 05:23 | CR ---
Chest: Portable view of the chest was obtained. Comparison: Prior chest x-ray of 10/14/13. Heart size and mediastinum are normal. Lungs are clear with no acute parenchymal change. Bony structures are grossly intact. Impression: 1. Nothing acute is seen on portable chest x-ray. Diagnostic code #1 This report was dictated in MDT
== END 2020-03-02 12:10 | disposition home or self-care (01) ==
LOC: JD.ED 10:12
DX: R07.89 Other chest pain (principal); K22.4 Dyskinesia of esophagus; Z91.048 Other nonmedicinal substance allergy status
CPT/HCPCS: 71045; 93005; 99285; A9270; 93010; 99284

== ENCOUNTER 2021-04-15 15:59 | Emergency (ER) | payer BC ==
[2021-04-15 16:33] VITALS: BP 116/81; PULSE 89
[2021-04-15] MEDS ORDERED: Sodium Chloride 0.9% 10 ML Syringe FLUSH PRN (21:35)
--- NOTE | 2021-04-15 22:02 | EDM.PDOC ---
ED HPI GENERAL MEDICAL PROBLEM - General Chief Complaint: Genitourinary Problem Stated Complaint: NAUSEA/BACK/URINATION PAIN Time Seen by Provider: 04/15/21 21:34 Source of Information: Reports: Patient, RN Notes Reviewed History Limitations: Reports: No Limitations - History of Present Illness INITIAL COMMENTS - FREE TEXT/NARRATIVE: Patient is a 31-year-old female presenting to the emergency department with complaints of dysuria, right-sided flank pain, and nausea. Patient reports that she was diagnosed on 31 March with urinary tract infection and treated with Macrobid. She has been taking Azo consistently since that time. She feels that her symptoms did improve, however have been progressively worsening again. Complains of dysuria, frequency, and intermittent right-sided flank pain. She is had no documented fevers but states she has felt nauseous. Denies any vomiting. She is able to keep fluids down. Denies any history of kidney stones, but states that she has had numerous urinary tract infections with occasional pyelonephritis. She has not seen urology in the past. back Pain Score (Numeric/FACES): 5 - Related Data Allergies Allergy/AdvReac Type Severity Reaction Status Date / Time [facility] Wipes Allergy "Burning Uncoded 04/15/21 16:34 Sensation", Redness, Rash Home Meds: Home Meds Ethinyl Estradiol/Drospirenone [Yady 3 mg-0.02 mg Tablet] 1 tab PO DAILY 11/28/17 [History] Dicyclomine [Bentyl] 20 mg PO Q6H PRN #8 tablet 03/02/20 [Rx] Cefdinir [Omnicef] 300 mg PO BID 14 Days #28 cap 04/15/21 [Rx] Ondansetron [Zofran ODT] 4 mg PO Q6H PRN #10 tab.dis 04/15/21 [Rx] Past Medical History HEENT History: Reports: Other (See Below) Other HEENT History: Deviated septum Cardiovascular History: Reports: None Respiratory History: Reports: Asthma Gastrointestinal History: Reports: Chronic Constipation Genitourinary History: Reports: UTI, Recurrent, Other (See Below) Other Genitourinary History: kidney infection, pylenonephritis RECEIVING INSPECTOR History: Reports: Endometriosis, Polycystic Ovaries, Other (See Below) Other RECEIVING INSPECTOR History: cyst now also Musculoskeletal History: Reports: Fracture, Fibromyalgia Other Musculoskeletal History: Nasal fracture Neurological History: Reports: None Psychiatric History: Reports: Anxiety Endocrine/Metabolic History: Reports: Hypothyroidism Hematologic History: Reports: Anemia Immunologic History: Reports: None Oncologic (Cancer) History: Reports: None Dermatologic History: Reports: None - Infectious Disease History Infectious Disease History: Reports: Chicken Pox, Shingles - Past Surgical History Head Surgeries/Procedures: Reports: None HEENT Surgical History: Reports: Tonsillectomy Cardiovascular Surgical History: Reports: None Respiratory Surgical History: Reports: None GI Surgical History: Reports: Other (See Below) Other GI Surgeries/Procedures: Exploratory laproscopy Female Surgical History: Reports: None Endocrine Surgical History: Reports: None Neurological Surgical History: Reports: None Musculoskeletal Surgical History: Reports: None Dermatological Surgical History: Reports: None - History Comment History Comment: refused preg test- has period and using control Social & Family History - Family History Family Medical History: No Pertinent Family History Cardiac: Reports: RI - Tobacco Use Tobacco Use Status *Q: Current Every Day Tobacco User Years of Tobacco use: 6 Packs/Tins Daily: 0 - Caffeine Use Caffeine Use: Reports: Coffee, Soda - Recreational Drug Use Recreational Drug Use: No - Living Situation & Occupation Living situation: Reports: Single Occupation: Employed ED ROS GENERAL - Review of Systems Review Of Systems: Comprehensive ROS is negative, except as noted in HPI. ED EXAM, RENAL/ - Physical Exam Exam: See Below Exam Limited By: No Limitations General Appearance: Alert, WD/WN, No Apparent Distress Respiratory/Chest: No Respiratory Distress, Lungs Clear, Normal Breath Sounds, No Accessory Muscle Use, Chest Non-Tender Cardiovascular: Normal Peripheral Pulses, Regular Rate, Rhythm, No Edema, No Gallop, No JVD, No Murmur, No Rub GI/Abdominal: Normal Bowel Sounds, Soft, Non-Tender, No Organomegaly, No Distention, No Abnormal Bruit, No Mass Back Exam: Normal Inspection, Full Range of Motion, CVA Tenderness (R). No: CVA Tenderness (L) Neurological: Alert, Oriented, CN II-XII Intact, Normal Cognition, Normal Gait, Normal Reflexes, No Motor/Sensory Deficits Psychiatric: Normal Affect, Normal Mood Skin Exam: Warm, Dry, Intact, Normal Color, No Rash Course - Vital Signs Last Recorded V/S: Last Vital Signs Temp 97 F 04/15/21 16:30 Pulse 89 04/15/21 16:30 Resp 18 04/15/21 16:30 BP 116/81 04/15/21 16:30 Pulse Ox 95 04/15/21 16:30 - Orders/Labs/Meds Labs: Laboratory Tests 04/15/21 04/15/21 04/15/21 Range/Units 18:33 18:33 22:10 WBC 10.10 H (3.98-10.04) K/mm3 RBC 4.55 (3.98-5.22) M/mm3 Hgb 13.0 D (11.2-15.7) gm/dl Hct 39.9 (34.1-44.9) % MCV 87.7 (79.4-94.8) fl MCH 28.6 (25.6-32.2) pg MCHC 32.6 (32.2-35.5) g/dl RDW Std Deviation 41.4 (36.4-46.3) fL Plt Count 256 (182-369) K/mm3 MPV 10.1 (9.4-12.3) fl Neut % (Auto) 67.6 (34.0-71.1) % Lymph % (Auto) 24.6 (19.3-51.7) % [place] % (Auto) 5.8 (4.7-12.5) % Eos % (Auto) 1.5 (0.7-5.8) Baso % (Auto) 0.4 (0.1-1.2) % Neut # (Auto) 6.83 H (1.56-6.13) K/mm3 Lymph # (Auto) 2.48 (1.18-3.74) K/mm3 [place] # (Auto) 0.59 H (0.24-0.36) K/mm3 Eos # (Auto) 0.15 (0.04-0.36) K/mm3 Baso # (Auto) 0.04 (0.01-0.08) K/mm3 Sodium (136-145) mEq/L Potassium (3.5-5.1) mEq/L Chloride (98-107) mEq/L Carbon Dioxide (21-32) mEq/L Anion Gap (5-15) BUN (7-18) mg/dL Creatinine (0.55-1.02) mg/dL Est Cr Clr Drug Dosing mL/min Estimated GFR (MDRD) (>60) mL/min BUN/Creatinine Ratio (14-18) Glucose (70-99) mg/dL Calcium (8.5-10.1) mg/dL Total Bilirubin (0.2-1.0) mg/dL AST (15-37) U/L ALT (14-59) U/L Alkaline Phosphatase (46-116) U/L C-Reactive Protein (<1.0) mg/dL Total Protein (6.4-8.2) g/dl Albumin (3.4-5.0) g/dl Globulin gm/dL Albumin/Globulin Ratio (1-2) Urine Color Yellow (Yellow) Urine Appearance Slt cloudy H (Clear) Urine pH 7.0 (5.0-8.0) Ur Specific [place] 1.020 (1.005-1.030) Urine Protein Negative (Negative) Urine Glucose (UA) Negative (Negative) Urine Ketones Negative (Negative) Urine Occult Blood Trace-intact H (Negative) Urine Nitrite Negative (Negative) Urine Bilirubin Negative (Negative) Urine Urobilinogen 0.2 (0.2-1.0) Ur Leukocyte Esterase 2+ H (Negative) Urine RBC 5-10 H (0-5) /hpf Urine WBC 10-20 H (0-5) /hpf Ur Squamous Epith Cells 0-5 (0-5) /hpf Urine Bacteria Many H (FEW) /hpf Urine Mucus Few (FEW) /hpf Urine HCG, Qual Negative (NEGATIVE) 04/15/21 Range/Units 22:10 WBC (3.98-10.04) K/mm3 RBC (3.98-5.22) M/mm3 Hgb (11.2-15.7) gm/dl Hct (34.1-44.9) % MCV (79.4-94.8) fl MCH (25.6-32.2) pg MCHC (32.2-35.5) g/dl RDW Std Deviation (36.4-46.3) fL Plt Count (182-369) K/mm3 MPV (9.4-12.3) fl Neut % (Auto) (34.0-71.1) % Lymph % (Auto) (19.3-51.7) % [place] % (Auto) (4.7-12.5) % Eos % (Auto) (0.7-5.8) Baso % (Auto) (0.1-1.2) % Neut # (Auto) (1.56-6.13) K/mm3 Lymph # (Auto) (1.18-3.74) K/mm3 [place] # (Auto) (0.24-0.36) K/mm3 Eos # (Auto) (0.04-0.36) K/mm3 Baso # (Auto) (0.01-0.08) K/mm3 Sodium 143 (136-145) mEq/L Potassium 3.7 (3.5-5.1) mEq/L Chloride 106 (98-107) mEq/L Carbon Dioxide 27 (21-32) mEq/L Anion Gap 13.7 (5-15) BUN 6 L (7-18) mg/dL Creatinine 0.7 (0.55-1.02) mg/dL Est Cr Clr Drug Dosing 101.48 mL/min Estimated GFR (MDRD) > 60 (>60) mL/min BUN/Creatinine Ratio 8.6 L (14-18) Glucose 84 (70-99) mg/dL Calcium 8.4 L (8.5-10.1) mg/dL Total Bilirubin 0.5 (0.2-1.0) mg/dL AST 14 L (15-37) U/L ALT 13 L (14-59) U/L Alkaline Phosphatase 69 (46-116) U/L C-Reactive Protein < 0.2 (<1.0) mg/dL Total Protein 6.9 (6.4-8.2) g/dl Albumin 4.1 (3.4-5.0) g/dl Globulin 2.8 gm/dL Albumin/Globulin Ratio 1.5 (1-2) Urine Color (Yellow) Urine Appearance (Clear) Urine pH (5.0-8.0) Ur Specific [place] (1.005-1.030) Urine Protein (Negative) Urine Glucose (UA) (Negative) Urine Ketones (Negative) Urine Occult Blood (Negative) Urine Nitrite (Negative) Urine Bilirubin (Negative) Urine Urobilinogen (0.2-1.0) Ur Leukocyte Esterase (Negative) Urine RBC (0-5) /hpf Urine WBC (0-5) /hpf Ur Squamous Epith Cells (0-5) /hpf Urine Bacteria (FEW) /hpf Urine Mucus (FEW) /hpf Urine HCG, Qual (NEGATIVE) Meds: Medications Discontinued Medications Generic Name Dose Route Start Last Admin Trade Name Mary PRN Reason Stop Dose Admin Ceftriaxone Sodium 2 gm/ 100 mls @ 200 mls/hr 04/15/21 22:12 04/15/21 22:50 Sodium Chloride IV 04/15/21 22:41 200 mls/hr ONETIME ONE Administration Iopamidol 100 ml 04/15/21 22:29 04/15/21 22:32 Iopamidol 612 Mg/Ml 100 Ml Bottle IVPUSH 04/15/21 22:30 100 ml ONETIME ONE Administration Ondansetron HCl 4 mg 04/15/21 22:58 04/15/21 23:08 Ondansetron 4 Mg Tab.Dis PO 04/15/21 22:59 4 mg ONETIME ONE Administration Sodium Chloride 10 ml 04/15/21 21:35 04/15/21 22:32 Sodium Chloride 0.9% 10 Ml Syringe FLUSH 10 ml ASDIRECTED PRN Administration Keep Vein Open - Re-Assessments/Exams Free Text/Narrative Re-Assessment/Exam: Patient is a 31-year-old female presenting to the emergency department with ongoing frequency, dysuria, and right-sided flank pain. Urinalysis collected upon patient's arrival is grossly positive for urinary tract infection. Patient does have right-sided CVA tenderness. She is afebrile. Have ordered blood work and CT scan of the abdomen pelvis with IV contrast only. Urine has been s ent for culture. Once blood has been drawn, we will give Rocephin 2 g IV for treatment of pyelonephritis. 04/15/21 22:53 Hematology is grossly unremarkable. CT scan shows no evidence of pyelonephri tis. Patient will be discharged home with prescription for cefdinir. Discussed return precautions. Discharge instructions as documented. Departure - Departure Time of Disposition: 22:59 Disposition: Home, Self-Care 01 Condition: Good Clinical Impression: Pyelonephritis - Discharge Information *PRESCRIPTION DRUG MONITORING PROGRAM REVIEWED*: No *COPY OF PRESCRIPTION DRUG MONITORING REPORT IN PATIENT EMERITA: No Prescriptions: Cefdinir [Omnicef] 300 mg PO BID 14 Days #28 cap Ondansetron [Zofran ODT] 4 mg PO Q6H PRN #10 tab.dis PRN Reason: Nausea/Vomiting Instructions: Pyelonephritis, Adult, [id number] Referrals: PCP,None [Primary Care Provider] - Forms: ED Department Discharge Additional Instructions: You were evaluated in the emergency department today for ongoing frequency and burning with urination as well as right-sided flank pain and nausea. Work-up included blood work, urinalysis, and a CT scan your abdomen pelvis. Results of your work-up did show that you are constipated and have a urinary tract infection but were otherwise normal. In the ER, you received a dose of IV antibiotics. You have been started on cefdinir for treatment of kidney infection. Take this as prescribed starting tomorrow. Prescriptions also been sent for Zofran for nausea. Recommend she continue using laxatives to help with your constipation. Follow-up with your primary care provider to discuss referral to urology for recurrent urinary tract infections. Return to ER for any new or worsening symptoms.
[2021-04-15] MEDS ORDERED: cefTRIAXone 2 GM in Sodium Chloride 0.9% 100 ML IV ONE (22:12)
[2021-04-15] MEDS ORDERED: Iopamidol 612 MG/ML 100 ML Bottle IVPUSH ONE (22:29)
[2021-04-15] MEDS ORDERED: Ondansetron 4 MG Tab.DIS PO ONE (22:58)
--- NOTE | 2021-04-16 07:48 | CT ---
CT abdomen and pelvis Technique: Multiple axial sections were obtained from above the dome of the diaphragm inferiorly through the pubic symphysis. Intravenous contrast was utilized. No oral contrast has been given. Delayed images were obtained through the bladder. Reconstructed coronal and sagittal images were obtained. Comparison: Prior CT abdomen and pelvis exam of 02/05/20. Findings: Visualized lung bases show nothing acute. Liver contains no focal abnormality. Gallbladder contains no calcified gallstones. Spleen size is normal. Adrenal glands show no nodule. Pancreas shows no discrete abnormality. Kidneys show symmetric contrast enhancement. Delayed images show contrast within the distal left ureter and within the bladder. Abdominal aorta shows no aneurysm. No retroperitoneal adenopathy is seen. No mesenteric abnormalities are seen. No pelvic mass or adenopathy is noted. Bladder wall is felt to be within normal limits for the patient's age. Mild increased stool is seen throughout the colon. Appendix is seen which is normal. Bone window settings were reviewed which show no acute osseous abnormality. Impression: 1. Diffuse increased stool throughout the colon. 2. No acute abnormality is otherwise seen on CT study of the abdomen and pelvis. Diagnostic code #2 I agree with preliminary report from [facility], finalized on 04/15/21, 11:50 PM CDT, code 1
== END 2021-04-15 23:52 | disposition home or self-care (01) ==
LOC: JD.ED 15:59
DX: N12 Tubulo-interstitial nephritis, not specified as acute or chronic (principal); Z88.8 Allergy status to other drugs, medicaments and biological substances; Z72.0 Tobacco use
CPT/HCPCS: 36415; 74177; 80053; 81001; 81025; 85025; 86140; 87040; 87086; 87088; 87186; 96365; 99284; A9270; J0696; Q9967